=== PATIENT | female | born 1990 | race Caucasian/White ===

== ENCOUNTER 2018-03-08 23:16 | Emergency (ER) | payer OTHER, MEDICAID, SELFPAY ==
[2018-03-08 23:31] VITALS: BP 110/65; PULSE 90; RESP 18; TEMP 36.6; O2SAT 100
--- NOTE | 2018-03-09 00:04 | ED_ITS ---
HPI - General Chief complaint: OB/Uterine Contractions Stated complaint: DEHYDRATED AND LIGHTHEADED Time Seen by Provider: 03/08/18 23:50 Source: patient Mode of arrival: ambulatory Limitations: no limitations History of Present Illness HPI Narrative: Patient is a 27-year-old female who is 27 weeks who presents with nausea and vomiting. She has been unable to keep anything down for the last day. She has developed some mild abdominal cramping and back pain but most of all her headache is worse. His she has not had problems with this . She was receiving care in renal recently moved to the area still getting set up with care but some [address] She denies any vaginal bleeding no fevers. No painful or frequent urination Patient : Yes OB History - Previous Pregnancies: no complications care: followed by OB Related Data : 4 Para: 3 Home Medications Medication Instructions Recorded Confirmed PNV cmb#95-ferrous fumarate-FA 28 mg PO QDAY 03/09/18 03/09/18 [] acetaminophen 650 mg PO Q4H PRN 03/09/18 03/09/18 Previous Rx's Medication Instructions Recorded ondansetron [Zofran ODT] 4 mg PO Q6H PRN #10 tab 03/09/18 Allergies Allergy/AdvReac Type Severity Reaction Status Date / Time Sulfa (Sulfonamide Allergy Unknown Anaphylaxis Verified 03/09/18 00:43 Antibiotics) Review of Systems Review of Systems All systems reviewed & are unremarkable except as noted in HPI and below Constitutional Denies chills, Denies fever(s), Reports headache(s), Denies lethargy and Denies weakness ENT Ears, Nose, Mouth, and Throat: Reports headache(s) Cardiovascular Denies chest pain, Denies irregular heart rhythm, Denies lightheadedness, Denies palpitations, Denies dyspnea, Denies dyspnea on exertion and Denies orthopnea Respiratory Denies cough, Denies dyspnea, Denies dyspnea on exertion and Denies wheezing Gastrointestinal Gastrointestinal: Reports system reviewed and no additional complaints, except as docu Genitourinary Reports as per HPI Integumentary/Breasts Denies pruritus, Denies erythema, Denies rash and Denies wounds Neurologic Reports headache(s), Denies weakness and Reports other Endocrine Denies palpitations Allergic/Immunologic Denies wheezing PMFSH - Past Medical History Medical history: Reports no medical history Patient : Yes Family history: Reports non-contributory Exam Const General: cooperative and well developed Nutritional Appearance: well nourished Orientation: alert, awake, oriented x3 and not confused Other: playing on phone Neck Neck: full ROM and no meningeal signs Resp Effort & Inspection: normal respiratory effort, able to speak in complete sentences, no respiratory distress and no use of accessory muscles Auscultation: clear to auscultation bilaterally, no rales, no rhonchi and no wheezes Cardio Rate: regular rate Rhythm: regular rhythm Heart Sounds: no click, no gallops, no murmurs and no rubs Pulses: normal peripheral pulses GI Inspection: non-distended Palpation: soft (gravid), no hepatosplenomegaly, No guarding, No pulsatile mass and No tender Auscultation: normal bowel sounds General: No CVA tenderness Skin General: no rashes or lesions noted, No jaundice and No petechiae Neuro General: alert, oriented x3, gait normal and no focal motor deficits Cranial Nerves: CN's II-XI intact bilaterally Speech: speech normal Motor: strength 5/5 throughout Sensory Exam: no sensory deficits noted MDM - OB/Uterine Contractions MDM Narrative Medical decision making narrative: Patient is tolerating oral fluids. No sign of UTI heart tones are good back pain and abdominal pain improved with IV fluids. He is given prescription for Zofran. She is scheduled to see an Ob with [facility] she is not sure who. She has been receiving care. Lab Data Result diagrams: 03/08/18 23:58 03/08/18 23:58 Lab Results 03/08/18 03/08/18 03/09/18 Range/Units 23:58 23:58 02:24 WBC 7.3 (4.5-11.0) X10^3/uL RBC 3.35 L (4.0-5.2) X10^6/uL Hgb 10.5 L (12.0-16.0) g/dL Hct 29.7 L (36-46) % MCV 88.6 (80-100) fL MCH 31.4 (26-34) PG MCHC 35.4 (30-36) % RDW 14.8 (11.6-14.8) % Plt Count 209 (150-400) X10^3/uL Neut % (Auto) 72.0 (50-75) % Lymph % (Auto) 15.7 L (25-40) % Frio % (Auto) 10.1 (3-14) % Eos % (Auto) 1.6 L (2-4) % Baso % (Auto) 0.6 (0-2) % Neut # (Auto) 5300 (8658-5817) /uL Sodium 137 (137-145) mmol/L Potassium 3.6 (3.4-5.1) mmol/L Chloride 104.0 (98-107) mmol/L Carbon Dioxide 29.0 (22-32) mmol/L BUN 9.0 (7-17) mg/dL Creatinine 0.50 L (0.52-1.04) mg/dL Estimated GFR > 60.0 (>60) mL/min BUN/Creatinine Ratio 18.0 (6-22) Glucose 93 (70-100) mg/dL Calcium 8.7 (8.4-10.2) mg/dL Total Bilirubin 0.3 (0.2-1.3) mg/dL AST 23 (14-36) IU/L ALT 27 (9-52) IU/L Alkaline Phosphatase 71 (38-126) U/L Total Protein 6.2 L (6.3-8.2) g/dL Albumin 3.4 L (3.5-5.0) g/dL Globulin 2.8 (1.7-4.1) g/dL Albumin/Globulin Ratio 1.2 (1.0-2.8) Ur Squamous Epith Cells 1-5 /hpf Urine Bacteria Few (2-10) H (None) Hyaline Casts (None) Ur Culture Indicated? Cult not indicated Micro UA Comment Not Reportable Course Orders Ordered: ED Orders 03/09/18 00:08 Complete Blood Count AUTO DIFF Stat Comprehensive Metabolic Panel Stat 03/09/18 02:24 Urine Microscopic Stat Discontinued Medications Acetaminophen (Tylenol) 975 mg PO NOW ONE Stop: 03/09/18 00:10 Last Admin: 03/09/18 00:48 Dose: 975 mg Sodium Chloride (Normal Saline 0.9%) 1,000 mls @ 1,000 mls/hr IV BOLUS ONE Stop: 03/09/18 01:07 Last Infusion: 03/09/18 01:27 Dose: 0 mls/hr Admin: 03/09/18 00:46 Dose: 1,000 mls/hr Sodium Chloride (Normal Saline 0.9%) 500 mls @ 1,000 mls/hr IV BOLUS PRN PRN Reason: Fluid replacement Sodium Chloride (Normal Saline 0.9%) 1,000 mls @ 1,000 mls/hr IV BOLUS ONE Stop: 03/09/18 02:44 Last Infusion: 03/09/18 02:20 Dose: 0 mls/hr Infusion: 03/09/18 01:53 Dose: 1,000 mls/hr Admin: 03/09/18 01:47 Dose: 1,000 mls/hr Ondansetron HCl (Zofran) 4 mg IV NOW ONE Stop: 03/09/18 00:10 Last Admin: 03/09/18 00:46 Dose: 4 mg Ondansetron HCl (Zofran Odt Prepack) 1 bottle MISC SEEINSTR ONE Stop: 03/09/18 02:46 Last Admin: 03/09/18 02:47 Dose: 1 bottle Last Vital Signs Temp 97.9 F 03/08/18 23:31 Pulse 77 03/09/18 02:36 Resp 14 03/09/18 01:26 BP 93/52 L 03/09/18 02:36 Pulse Ox 97 03/09/18 01:26 Discharge Plan Departure Patient Disposition: Home, Self-Care Clinical Impression: Hyperemesis gravidarum Discharge Date/Time: 03/09/18 02:52 Interventions: ED Discharge Assessment Last Done: 03/09/18 02:52 Instructions: Hyperemesis Gravidarum Activity Restrictions/Additional Instructions: *You have been diagnosed with vomiting with *What to do: Increase fluid intake *Take medications as directed -Zofran every 4 hr if needed for nausea or vomiting *Follow up with your primary care provider in 2-3 days, follow up with your Ob *Return to ER if you should have inability keep fluids down, increasing abdominal pain, vaginal bleeding or any new, worsening or concerning symptoms Prescriptions: New ondansetron [Zofran ODT] 4 mg tablet,disintegrating 4 mg PO Q6H PRN (Reason: nausea and vomiting) Qty: 10 RF: 0 No Action acetaminophen 325 mg Tablet 650 mg PO Q4H PRN (Reason: Pain (Scale Score 1-3)) RF: 0 PNV cmb#95-ferrous fumarate-FA [] 28 mg iron- 800 mcg Tablet 28 mg PO QDAY RF: 0
[2018-03-09 00:22] LABS: Add Manual Diff / Slide Review NO; Basophils Percent Auto 0.6 % (0-2); Eosinophils Percent Auto 1.6 % (2-4); Hematocrit 29.7 % (36-46); Hemoglobin 10.5 g/dL (12.0-16.0); Lymphocytes Percent Auto 15.7 % (25-40); Mean Corpuscular HGB Conc 35.4 % (30-36); Mean Corpuscular Hemoglobin 31.4 PG (26-34); Mean Corpuscular Volume 88.6 fL (80-100); Monocytes Percent Auto 10.1 % (3-14); Neutrophils Absolute Auto 5300 /uL (3000-5900); Platelet Count 209 X10^3/uL (150-400); Red Blood Cell Count 3.35 X10^6/uL (4.0-5.2); Red Cell Distribution Width 14.8 % (11.6-14.8); White Blood Cell Count 7.3 X10^3/uL (4.5-11.0)
[2018-03-09 00:27] LABS: Alanine Aminotransferase 27 IU/L (9-52); Albumin 3.4 g/dL (3.5-5.0); Albumin Globulin Ratio 1.2 (1.0-2.8); Alkaline Phosphatase 71 U/L (38-126); Aspartate Aminotransferase 23 IU/L (14-36); Bilirubin Total 0.3 mg/dL (0.2-1.3); Calcium 8.7 mg/dL (8.4-10.2); Estimated Glomerular Filt Rate > 60.0 mL/min (>60); Globulin 2.8 g/dL (1.7-4.1); Glucose 93 mg/dL (70-100); HEMOLYSIS < 15 (0-50); Potassium 3.6 mmol/L (3.4-5.1); Sodium 137 mmol/L (137-145); Total Protein 6.2 g/dL (6.3-8.2)
[2018-03-09] MEDS: ONDANSETRON 4 MG/2 ML INJ IV (00:46)
[2018-03-09] MEDS: SODIUM CHLORIDE 0.9% 1,000 ML 1000 ML IV ×2 (00:46→01:47)
[2018-03-09] MEDS: ACETAMINOPHEN 325 MG TABLET 975 MG PO (00:48)
[2018-03-09 01:26] VITALS: BP 93/58; PULSE 89; RESP 14; O2SAT 97
[2018-03-09 02:36] VITALS: BP 93/44; BP 93/52; BP 97/58; PULSE 73; PULSE 77; PULSE 78
[2018-03-09] MEDS: ONDANSETRON 4 MG ODT PREPACK 1 BOTTLE MISC (02:47)
[2018-03-09 03:01] LABS: Bacteria Urine Few (2-10); Squamous Epithelial Cell Urine 1-5 /HPF
[2018-03-09 03:02] LABS: Culture Indicated Urine Cult Not Indicated
== END 2018-03-09 02:52 | disposition home or self-care (01) ==
PROVIDERS: Emergency Provider Emergency Medicine; PCP Registered Nurse Women's Health Care, Ambulatory
DX: O21.0 Mild hyperemesis gravidarum (principal)
CPT/HCPCS: 36591; 80053; 81003; 81015; 85025; 96361; 96374; 99284; J2405

== ENCOUNTER → 2018-05-10 16:36 | Outpatient (CLI) | payer OTHER, MEDICAID, SELFPAY ==
[2018-05-11 17:04] LABS: Strep Grp B PCR NEG for Grp B Strep
== END ==
PROVIDERS: PCP Registered Nurse Women's Health Care, Ambulatory; Visit Provider Specialist
DX: Z34.83 Encounter for supervision of other normal pregnancy, third trimester (principal); Z3A.35 35 weeks gestation of pregnancy
CPT/HCPCS: 87653

== ENCOUNTER 2018-05-15 20:42 | Outpatient (CLI) | payer OTHER, MEDICAID, SELFPAY ==
--- NOTE | 2018-05-15 21:46 | PM.OBTRLD ---
Visit Information Visit Information Date of evaluation: 05/15/18 Primary OB Provider: Karoline Joel On-call OB Provider: Maryam Padron Reason for Evaluation: Yes rule out labor [facility] Social History Smoking Status: Never smoker Evaluation Evaluation Baseline heart rate: 130 Variability: Moderate (11-25) monitor accelerations: Present monitor decelerations: Absent Diagnosis, Plan/Disposition Final Diagnosis (1) 36 weeks gestation of : Current Visit: Yes Status: Acute Plan/Disposition Plan: NST reactive, SVE unchanged from clinic SVE per RN. Follow up in clinic as scheduled.
== END 2018-05-15 21:58 | disposition home or self-care (01) ==
LOC: OB 05-16 16:37
PROVIDERS: Family Provider Specialist; PCP Specialist; Visit Provider Family Medicine
DX: O26.23 Pregnancy care for patient with recurrent pregnancy loss, third trimester (principal); Z3A.36 36 weeks gestation of pregnancy
CPT/HCPCS: 59025; G0378; G0379

== ENCOUNTER → 2018-05-23 16:54 | Outpatient (CLI) | payer OTHER, MEDICAID, SELFPAY ==
[2018-05-23 18:04] LABS: Aspartate Aminotransferase 26 IU/L (14-36)
[2018-05-26 20:35] LABS: Bile Acids, Total 10.2 umol/L (< 10.1)
== END ==
PROVIDERS: Family Provider Specialist; PCP Specialist; Visit Provider Specialist
DX: R21 Rash and other nonspecific skin eruption (principal); Z34.83 Encounter for supervision of other normal pregnancy, third trimester
CPT/HCPCS: 36415; 82239; 84450